=== PATIENT | male | born 1965 | race Caucasian/White ===

== ENCOUNTER 2022-01-11 14:43 | Emergency (ER) | payer OTHER, SELFPAY ==
--- NOTE | ~2022-01-11 | XR_ITS ---
XR tibia fibula RT 2V DATE: 01/11/2022 16:04 INDICATION: Dog bite at right calf. Rule out foreign body TECHNIQUE: Portable AP and lateral views COMPARISON: None FINDINGS: No fracture or dislocation of the tibia or fibula. Normal alignment at the knee and ankle j oints. No radiopaque soft tissue foreign body or subcutaneous emphysema is evident. No periosteal reaction o r bone destruction. IMPRESSION: No radiopaque foreign body fracture or dislocation Reviewed, dictated and finalized at location A.
[2022-01-11 14:55] VITALS: BP 114/81; PULSE 119; RESP 18; TEMP 36.7; O2SAT 98
--- NOTE | 2022-01-11 15:22 | ED.ANIMALBIT ---
HPI - Animal Bite General Chief Complaint: Animal Bite Stated Complaint: dogbite Time Seen by Provider: 01/11/22 15:13 Source: patient Mode of arrival: ambulatory Limitations: no limitations History of Present Illness HPI narrative: Patient is a 56 y/o male who presents to the ED with c/o dog bite to his posterolateral R lower leg. Patient reports he was bite by his neighbors dog just prior to arrival. Wounds to R lower lateral calf. He states the neighbors dog is up to date on his shots. Patient UTD on tetanus. No other injuries. No numbness/tingling/weakness. Related Data Allergies Allergy/AdvReac Type Severity Reaction Status Date / Time No Known Allergies Allergy Mild Verified 01/11/22 15:12 Review of Systems Review of Systems: CONSTITUTIONAL: Denies fever. SKIN: Reports dog bite wounds to R lower posterolateral leg. NEUROLOGIC: Denies numbness, tingling, or weakness. All systems reviewed & are unremarkable except as noted in HPI and below PMFSH Past Medical History Medical History (Updated 01/11/22 @ 15:52 by Kisha Fuentes PA-C) GERD (gastroesophageal reflux disease) HLD (hyperlipidemia) Surgical History Surgical History (Updated 01/11/22 @ 15:40 by Kisha Fuentes PA-C) History of esophagogastroduodenoscopy (EGD) Social History Social History (Updated 01/11/22 @ 15:40 by Kisha Fuentes PA-C) Smoking status: Never smoker Exam Narrative: GENERAL: Well appearing, well-nourished, non-toxic, in no acute distress. HEAD: Normocephalic, atraumatic. NECK: Supple. No adenopathy, no masses. RESPIRATORY: Airway patent, respirations nonlabored. CARDIOVASCULAR: Regular rate and rhythm without murmurs, rubs, or gallops. Peripheral pulses 2+ and equal bilaterally. MUSCULOSKELETAL: Moves all extremities. Strength/ROM intact. SKIN: Warm, dry, normal color. Teeth baltazar/several small puncture wounds to mid R lower calf. Larger vertical puncture/superficial laceration to lateral R calf. Small hematoma forming laterally to larger puncture. Bleeding controlled at this time. No abscess or fluctuance. No crepitus. No streaking redness. NEURO: A&O X3. Speech clear. Cranial nerves II-XII grossly intact. Steady gait. No ataxic movements. PSYCHIATRIC: Appropriate mood and affect. Normal interaction. Course Vital Signs Vital signs: Vital Signs Temperature 98.0 F 01/11/22 14:55 Pulse Rate 119 H 01/11/22 14:55 Respiratory Rate 18 01/11/22 14:55 Blood Pressure 114/81 01/11/22 14:55 Pulse Oximetry 98 01/11/22 14:55 Oxygen Delivery Room Air 01/11/22 14:55 Temperature 98.0 F 01/11/22 14:55 Pulse Rate 119 H 01/11/22 14:55 Respiratory Rate 18 01/11/22 14:55 Blood Pressure 114/81 01/11/22 14:55 Pulse Oximetry 98 01/11/22 14:55 Oxygen Delivery Room Air 01/11/22 14:55 MDM - Animal Bite MDM Narrative Medical decision making narrative: Dog bite to right posterior calf occurred just prior to arrival. Dog up-to-date on vaccines. Patient filed report with animal control w/ registration. Patient's tetanus status up-to-date. X-ray of tibia-fibula negative for foreign body, osseous abnormality, SQ gas. Patient's wounds were thoroughly cleaned and irrigated. He will be sent home on Augmentin. Recommended close f/u and wound check with PCP. Given reasons to return to the ED. Patient agrees w/ plan. Medical Records Attestation: I reviewed the patient's medical records. Imaging Data Attestation: I personally reviewed and interpreted this imaging study as follows: Radiologist's impression: ITS Impressions Tibia/Fibula X-Ray 01/11/22 16:06 IMPRESSION: No radiopaque foreign body fracture or dislocation Discharge Plan Discharge Clinical Impression: Dog bite Qualifiers: Encounter type: initial encounter Qualified Code(s): W54.0XXA - Bitten by dog, initial encounter Patient Disposition: Home, Self-Care Condition: Stable Instructions: Antibiotic Form, Animal Bit
== END 2022-01-11 16:45 | disposition home or self-care (01) ==
PROVIDERS: Emergency Provider Emergency Medicine
DX: S81.851A Open bite, right lower leg, initial encounter (principal); K21.9 Gastro-esophageal reflux disease without esophagitis; E78.5 Hyperlipidemia, unspecified; W54.0XXA Bitten by dog, initial encounter
CPT/HCPCS: 73590; 99283